=== PATIENT | male | born 1950 | race Caucasian/White ===

== ENCOUNTER 2021-08-27 11:49 | Outpatient (CLI) | payer OTHER, SELFPAY ==
--- NOTE | ~2021-08-27 | XR_ITS ---
EXAMINATION: XR thoracic spine 3V, XR lumbar spine 2-3V DATE: 08/27/2021 12:46 INDICATION: Unspecified low back pain TECHNIQUE: 1. One AP and lateral views of the thoracic spine were obtained. 2. Supine AP, lateral and coned-down lateral lumbosacral views of the lumbar spine were obtained. COMPARISON: Chest radiograph dated 03/24/2016 FINDINGS: Thoracic spine: Alignment is normal. Vertebral body heights are normal. Multilevel mild disc height loss along with b ridging osteophytes throughout the thoracic spine, the latter consistent with diffuse idiopathic skel etal hyperostosis (DISH). Dislocated left reversed total shoulder arthroplasty. Dual-lead cardiac pac emaker with lead tips in the right atrium and right ventricle. Lumbar spine: 5 degrees lumbar dextrocurvature. Sagittal alignment is normal. Vertebral body heights are normal. Mo derate disc height loss at L2-L3 and L5-S1 and mild disc height loss at the remaining lumbar levels. Additional bridging osteophytes consistent with DISH throughout the lumbar spine. IMPRESSION: 1. Mild thoracic and moderate lumbar spondylosis and DISH with bridging osteophytes throughout the ma jority of the thoracic and lumbar spine. 2. Dislocated left reverse total shoulder arthroplasty. Reviewed, dictated and finalized at location A. [employer] IMPRESSION: 1. Mild thoracic and moderate lumbar spondylosis and DISH with bridging osteoph ytes throughout the majority of the thoracic and lumbar spine. 2. Dislocated left reverse total shoulder arthroplasty.
== END 2021-08-27 11:50 | disposition home or self-care (01) ==
LOC: ANHIMG 11:51
PROVIDERS: PCP Family Medicine; Visit Provider Nurse Practitioner Family
DX: M54.50 Low back pain, unspecified (principal); M54.6 Pain in thoracic spine; M47.816 Spondylosis without myelopathy or radiculopathy, lumbar region; M47.814 Spondylosis without myelopathy or radiculopathy, thoracic region; M48.16 Ankylosing hyperostosis [Forestier], lumbar region; T84.89XA Other specified complication of internal orthopedic prosthetic devices, implants and grafts, initial encounter; Z96.612 Presence of left artificial shoulder joint
CPT/HCPCS: 72072; 72100

== ENCOUNTER → 2021-10-14 08:22 | Outpatient (CLI) | payer OTHER, SELFPAY ==
--- NOTE | ~2021-10-14 | XR_ITS ---
XR foot RT min 3V DATE: 10/14/2021 08:57 INDICATION: Right foot pain TECHNIQUE: 4 views COMPARISON: None FINDINGS: There is diffuse osteopenia. There is very prominent plantar and moderately prominent posterior calcaneal enthesopathy. There is polyarticular osteoarthritis including prominent hypertrophic osteoarthritic change at the t alonavicular joint with prominent dorsal spurring, involvement of tarsal and tarsometatarsal joints, severe joint space narrowing and mild spurring at the first metatarsophalangeal joint. No fracture or dislocation, periosteal reaction or bone destruction is detected. There is extensive anterior and posterior tibial, dorsalis pedis and metatarsal artery calcification, suggesting diabetes. IMPRESSION: Polyarticular osteoarthritis Calcaneal enthesopathy Osteopenia Arterial calcification, including metatarsal artery calcification, suggesting diabetes Reviewed, dictated and finalized at location B. [employer]IC[employer] IMPRESSION: Polyarticular osteoarthritis Calcaneal enthesopathy Osteopenia Arterial calcification, including metatarsal artery calcification, suggesting d luis
== END ==
PROVIDERS: PCP Family Medicine; Visit Provider Physician Assistant
DX: M79.671 Pain in right foot (principal); M19.071 Primary osteoarthritis, right ankle and foot; M77.31 Calcaneal spur, right foot; M85.871 Other specified disorders of bone density and structure, right ankle and foot; I70.201 Unspecified atherosclerosis of native arteries of extremities, right leg
CPT/HCPCS: 73630

== ENCOUNTER 2022-10-23 15:10 | Observation (INO) | payer OTHER, SELFPAY ==
[2022-10-23] VITALS (21 sets, daily range): BP systolic 129–145; BP diastolic 47–85; PULSE 75–92; RESP 16–20; TEMP 36.8; O2SAT 95–100
--- NOTE | ~2022-10-23 | CT_ITS ---
EXAMINATION: CTA brain carotid DATE: 10/23/2022 20:02 INDICATION: Dizziness. TECHNIQUE: Computed tomographic angiography (CTA) of the head was performed without and with 100 mL O mnipaque-350 intravenous contrast. CTA of the neck was performed with intravenous contrast. Automated exposure control and iterative reconstruction technique were employed. The dose-length product was 1 940.64 mGy-cm. Maximum intensity projection and volume rendered 3D-reconstructions were created by mery barnes technologist on a separate workstation. COMPARISON: Head CT 03/24/2016 FINDINGS: HEAD CTA: There are scattered areas of low attenuation in the cerebral white matter, which is within normal limits for the patient's age. There is no intracranial hemorrhage, acute infarction, or abnorm al intracranial mass lesion. The ventricles are normal in size. The paranasal sinuses are clear. Ther e are likely changes of ocular lens replacement surgeries. The mastoid air cells are normal. The vert ebral arteries are codominant. There is moderate stenosis of the distal vertebral arteries. There is no significant stenosis of basilar artery or the posterior cerebral arteries. There is mild stenosis of the intracranial internal carotid arteries. There is no significant stenosis of the anterior or mi ddle cerebral arteries. Right A1 anterior cerebral artery is small, a normal variant. Anterior commun icating artery is normal. Left posterior communicating artery is normal. A right posterior communicat ing artery is not identified. There is no aneurysm. NECK CTA: Partially visualized is a left chest pacer. There are no pathologically enlarged lymph node s. There is no significant stenosis of the cervical vertebral arteries. There is plaque in the proxim al internal carotid arteries. There is 65% stenosis of the proximal right internal carotid artery rel ative to normal distal artery lumen diameter (NASCET criteria). There is 29% stenosis of the proximal left internal carotid artery relative to normal distal artery lumen diameter. There is severe cervic al spondylosis. IMPRESSION: 1. Normal aging brain. 2. Moderate stenosis of the distal vertebral arteries. 3. 65% stenosis of the proximal right internal carotid artery relative to normal distal artery lumen diameter (NASCET criteria). 4. 29% stenosis of the proximal left internal carotid artery relative to normal distal artery lumen d iameter. Reviewed, dictated and finalized at location A. WAINER IMPRESSION: 1. Normal aging brain. 2. Moderate stenosis of the distal vertebral arteries. 3. 65% stenosis of the proximal right internal carotid artery relative to scot l distal artery lumen diameter (NASCET criteria). 4. 29% stenosis of the proximal left internal carotid artery relative to normal distal artery lumen diameter.
--- NOTE | ~2022-10-23 | XR_ITS ---
EXAMINATION: XR chest 2V DATE: 10/23/2022 18:53 INDICATION: Dizziness. TECHNIQUE: Frontal and lateral views of the chest were obtained on 3 radiographs. COMPARISON: Chest single view 03/24/2016, chest CT 08/07/2010 FINDINGS: There is mild atelectasis in right lower lung zone. No pleural effusion or pneumothorax. Ca rdiomegaly is noted. There is a left chest wall pacer with leads in the right atrium and right ventri alysha. There is a dislocated left shoulder arthroplasty. IMPRESSION: 1. Mild atelectasis in right lower lung zone. 2. Cardiomegaly. 3. Dislocated left shoulder arthroplasty. Reviewed, dictated and finalized at location A. [employer]
--- NOTE | 2022-10-23 15:45 | ECG_ITS ---
Measurements Intervals [place] Rate: 79 P: ID: 0 QRS: 53 QRSD: 102 T: 194 QT: 413 QTc: 474 Interpretive Statements ATRIAL FIBRILLATION LOW QRS VOLTAGE IN PRECORDIAL LEADS [QRS DEFLECTION < 1.0 mV IN CHEST LEADS] POOR R-WAVE PROGRESSION MODERATE T-WAVE ABNORMALITY, CONSIDER INFERIOR ISCHEMIA [-0.1+ mV T WAVE IN II/aVF] ABNORMAL ECG NO PREVIOUS ECG AVAILABLE FOR COMPARISON Electronically Signed On 10-24-2022 15:06:32 GREENHOUSE INSTRUCTOR by Raj Robbins M.D.
[2022-10-23 17:02] LABS: Basophils Percent Auto 0.3 % (0.2-1.2); Eosinophils Absolute Auto 0.1 K/mm3 (0-0.3); Eosinophils Percent Auto 1.5 % (0-4.4); Hematocrit 36.2 % (42.0-52.0); Immature Granulocyte Absolute 0.01 K/mm3 (0.00-0.031); Immature Granulocyte Percent A 0.2 % (0-0.5); Lymphocytes Absolute Auto 1.64 K/mm3 (0.9-3.2); Lymphocytes Percent Auto 26.8 % (18.3-44.2); Mean Corpuscular HGB Conc 33.1 g/dl (32-36); Mean Corpuscular Hemoglobin 33.4 pg (26-34); Mean Corpuscular Volume 100.8 fl (80-100); Mean Platelet Volume 9.8 fl (7.4-10.4); Monocytes Absolute Auto 0.5 K/mm3 (0.1-0.6); Monocytes Percent Auto 8.8 % (2.6-8.5); Neutrophils Absolute Auto 3.8 K/mm3 (1.3-6.7); Neutrophils Percent Auto 62.4 % (45.5-73.1); Platelet Count Result 140 k/mm3 (150-375); Red Blood Count 3.59 M/mm3 (4.6-6.20); Red Cell Distribution Width 14.7 % (11.5-14.5); White Blood Count 6.1 K/mm3 (4.5-10.0)
[2022-10-23 17:09] LABS: Alanine Aminotransferase 20 U/L (6-50); Albumin Level 4.3 g/dL (3.5-5.1); Alkaline Phosphatase 87 U/L (38-126); Anion Gap 7 mmol/L (8-16); Aspartate Amino Transferase 28 U/L (17-59); Bilirubin,Total 1.2 mg/dL (0.2-1.3); Blood Urea Nitrogen 40 mg/dL (9-20); Calcium 8.8 mg/dL (8.4-10.2); Carbon Dioxide 27 mmol/L (22-30); Chloride 101 mmol/L (98-107); Estimated CRCL calculation 50 ml/min; Estimated Glomerular Filt Rate 37; Glucose 138 mg/dL (65-110); Potassium 3.9 mmol/L (3.4-5.0); Sodium 135 mmol/L (137-145)
--- NOTE | 2022-10-23 18:42 | ED.DIZZY ---
HPI - Dizziness General Chief Complaint: Dizziness <Lary Soares PA-C - Last Filed: 10/24/22 03:20> Stated Complaint: dizziness/off balance/flushing <Lary Soares PA-C - Last Filed: 10/24/22 03:20> Time Seen by Provider: 10/23/22 18:12 <Lary Soares PA-C - Last Filed: 10/24/22 03:20> History of Present Illness HPI Narrative: Patient is a 72-year-old male with history of CAD, diabetes, CHF, HLD, CKD, s/p cardiac pacemaker placement, a fib, here for evaluation of dizziness today. Patient states that he was walking down his driveway in his usual state of health when he suddenly felt flushed, shortness of breath and had dizziness. Reports blurry vision in both eyes. Since then he has had intermittent dizziness and shortness of breath. Denies any chest pain. He has chronic leg swelling and has been compliant with his Bumex. tells me patient had a pacemaker placed after he had a cardiac event several years ago. <Lary Soaers PA-C - Last Filed: 10/24/22 03:20> Related Data Home Medications: Home Medications Medication Instructions Recorded Confirmed aspirin 81 mg tablet,delayed 81 mg PO DAILY 04/15/21 10/24/22 release bumetanide 2 mg tablet 1 mg PO DAILY 04/15/21 10/24/22 clopidogrel 75 mg tablet 75 mg PO DAILY 04/15/21 10/24/22 fexofenadine 60 mg tablet (Jessica 60 mg PO Q12H 04/15/21 10/24/22 Allergy) lisinopril 10 mg tablet 15 mg PO DAILY 04/15/21 10/24/22 metoprolol tartrate 25 mg tablet 25 mg PO BID 04/15/21 10/24/22 solifenacin 10 mg tablet (Vesicare) 10 mg PO DAILY 04/15/21 10/24/22 allopurinol 300 mg tablet 300 mg PO DAILY 10/24/22 10/24/22 atorvastatin 40 mg tablet 40 mg PO HS 10/24/22 10/24/22 empagliflozin 10 mg tablet 10 mg PO DAILY 10/24/22 10/24/22 (Jardiance) tamsulosin 0.4 mg capsule 0.4 mg PO DAILY 10/24/22 10/24/22 <Lary Soares PA-C - Last Filed: 10/24/22 03:20> Allergies/Adverse Reactions: Allergies Allergy/AdvReac Type Severity Reaction Status Date / Time fentanyl Allergy Severe stop Verified 10/23/22 15:19 breathing adhesive tape Allergy Mild Rash Verified 10/23/22 15:19 <Lary Soares PA-C - Last Filed: 10/24/22 03:20> Review of Systems Review of Systems: Gen: Reports dizziness, diaphoresis Eyes: Denies eye pain or visual change ENT: Denies congestion Respiratory: Reports mild shortness of breath CV: Denies chest pain or palpitations GI: Denies abdominal pain nausea, emesis or diarrhea : denies burning, urgency, frequency or hematuria Musculoskeletal: Denies back pain or muscle pain Neuro: Denies numbness, tingling, weakness or focal weakness Skin: Denies rash Except as documented, all other systems reviewed and negative <Lary Soares PA-C - Last Filed: 10/24/22 03:20> [facility] Past Medical History Medical History: Medical History CAD (coronary artery disease) CHF (congestive heart failure) Chronic kidney disease, stage 3 unspecified Diabetes HLD (hyperlipidemia) 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 Hypothyroidism [place] (myocardial infarction) OMAR (obstructive sleep apnea) <Lary Soares PA-C - Last Filed: 10/24/22 03:20> Surgical History Surgical History: Surgical History H/O elbow surgery History of bilateral cataract extraction History of carpal tunnel release History of coronary artery stent placement History of knee replacement bilateral History of shoulder replacement Status cardiac pacemaker <Lary Soares PA-C - Last Filed: 10/24/22 03:20> Family History Family History: Family History Father Heart disease Mother Throat cancer <Lary Soares PA-C - Last Filed: 10/24/22 03:20> Social History Socia
[2022-10-23 19:24] LABS: Troponin I < 0.012 ng/mL (0.000-0.034)
[2022-10-23] MEDS: MECLIZINE HCL 12.5 MG TABLET PO (19:24)
[2022-10-23 21:34] LABS: INR 1.2; Prothrombin Time 14.6 Seconds (11.1-14.7)
[2022-10-23 21:35] LABS: Partial Thromboplastin Time 32.6 SECONDS (22.3-36.8)
[2022-10-23 21:57] LABS: Influenza A QL RT-PCR Negative (Negative); Influenza B QL RT-PCR Negative (Negative); SARS-CoV-2 RNA PCR Negative
[2022-10-24] VITALS (10 sets, daily range): BP systolic 107–138; BP diastolic 54–106; PULSE 72–98; RESP 18–24; TEMP 36.7–37; O2SAT 99–100; BMI 45.0
--- NOTE | 2022-10-24 | ECHO_ITS ---
Patient Info Name: Issa Lopez Age: 72 years : 1950 Gender: Male Ht: 72 in Wt: 331 lbs BSA: 2.83 m2 HR: 98 bpm BP: 138 / 89 mmHg Heart Rhythm: Atrial Fibrillation Technical Quality: Fair Exam Date: 10/24/2022 8:49 AM Exam Location: [facility] Patient Status: Outpatient Admit Date: 10/23/2022 Staff Ordering Physician: Skinny Ochoa MD Property Insurance Claims Examiner: Mayi Schumacher RDCS Attending Provider: Tess Noguera PA-C Referring Physician: Don CURRIE; Exam Type: CA echo dop color flow w con Study Info Indications - dizziness Complete two-dimensional, color flow and Doppler transthoracic echocardiogram is performed with contrast to opacify the left ventricle and to improve the deliniation of the left ventricle endocardial borders. Contrast/Agitated Saline Contrast/Ag. Saline: Definity Amount: 3.00 ml Administered By: Mayi Schumacher RDCS Existing IV Access: Yes IV Access Condition: patent with no signs of infiltration Summary 1. Left ventricular chamber dimension is normal. 2. Left ventricular systolic function is normal, estimated at 65-70%. 3. There is moderately increased left ventricular wall thickness. 4. The left ventricular diastolic function is abnormal. 5. Left atrial chamber dimension is mildly enlarged. 6. There is moderate to severe aortic valve stenosis with a peak velocity of 213.42 cm/s, mean gradient of 11 mmHg, and aortic valve area of 1.01 cm2. 7. Moderate pulmonary hypertension, estimated pulmonary arterial systolic pressure is 47 mmHg. 8. There is mild tricuspid valve regurgitation. 9. The aortic valve is abnormal with significant stenosis noted. Cardiology evaluation is recommended. Also probable linear artifact is seen in the right side, possible Pacemaker. Left Ventricle Left ventricular chamber dimension is normal. Left ventricular systolic function is normal, estimated at 65-70%. There is moderately increased left ventricular wall thickness. The left ventricular diastolic function is abnormal. Right Ventricle Right ventricular chamber dimension is normal. Right ventricular systolic function is normal. Linear artifact in right ventricle suggestive of catheter(s), pacemaker lead(s), or ICD lead(s). Left Atria Left atrial chamber dimension is mildly enlarged. Right Atria Right atrial chamber dimension is normal. Atrial Septum Intact interatrial septum visualized by color flow imaging. Aortic Valve The aortic valve is probable trileaflet. There is moderate to severe aortic valve stenosis with a peak velocity of 213.42 cm/s, mean gradient of 11 mmHg, and aortic valve area of 1.01 cm2. There is mild aortic valve regurgitation. There is severe aortic valve calcification. Pulmonic Valve The pulmonic valve is normal. There is no pulmonic valve stenosis. There is trace pulmonic regurgitation. Mitral Valve The mitral valve has normal leaflets. There is no mitral valve stenosis. There is trace mitral valve regurgitation. Tricuspid Valve The tricuspid valve leaflets are normal. There is no significant tricuspid valve stenosis. There is mild tricuspid valve regurgitation. Moderate pulmonary hypertension, estimated pulmonary arterial systolic pressure is 47 mmHg. Other Findings The aortic valve is abnormal with significant stenosis noted. Cardiology evaluation is recommended. Also probable linear artifact is seen in the right side, possible Pace
[2022-10-24 00:40] LABS: NT Pro B Type Natriuretic Pept 1700 pg/mL (19.9-100)
--- NOTE | 2022-10-24 00:57 | PM.IMHP ---
H&P: HPI History of Present Illness Date/Time: 10/24/22 00:57 Chief Complaint: Dizzy Narrative: This is a 72 yo male with PMHx significant for CAD, CHF, CKD, Morbid obesity, OMAR.Patient presented to ED due to unsteady gait, dizziness, no focal weakness, no speech disturbance, patient has been in his usual state of health up until this point this occurred at around noon time he was his usual prior to this. Preliminary work up was significant for CT reorted as : FINDINGS: HEAD CTA: There are scattered areas of low attenuation in the cerebral white matter, which is within normal limits for the patient's age. There is no intracranial hemorrhage, acute infarction, or abnormal intracranial mass lesion. The ventricles are normal in size. The paranasal sinuses are clear. There are likely changes of ocular lens replacement surgeries. The mastoid air cells are normal. The vertebral arteries are codominant. There is moderate stenosis of the distal vertebral arteries. There is no significant stenosis of basilar artery or the posterior cerebral arteries. There is mild stenosis of the intracranial internal carotid arteries. There is no significant stenosis of the anterior or middle cerebral arteries. Right A1 anterior cerebral artery is small, a normal variant. Anterior communicating artery is normal. Left posterior communicating artery is normal. A right posterior communicating artery is not identified. There is no aneurysm. NECK CTA: Partially visualized is a left chest pacer. There are no pathologically enlarged lymph nodes. There is no significant stenosis of the cervical vertebral arteries. There is plaque in the proximal internal carotid arteries. There is 65% stenosis of the proximal right internal carotid artery relative to normal distal artery lumen diameter (NASCET criteria). There is 29% stenosis of the proximal left internal carotid artery relative to normal distal artery lumen diameter. There is severe cervical spondylosis. IMPRESSION: 1. Normal aging brain. 2. Moderate stenosis of the distal vertebral arteries. 3. 65% stenosis of the proximal right internal carotid artery relative to normal distal artery lumen diameter (NASCET criteria). 4. 29% stenosis of the proximal left internal carotid artery relative to normal distal artery lumen diameter. Review of Systems Review of Systems: feeling dizzy, gait unsteady Constitutional: Constitutional: Denies chills, Denies fatigue, Denies fever(s), Denies frequent falls, Denies malaise, Denies night sweats and Denies poor appetite Eyes: Eyes: Denies change in vision ENT: Denies dysphagia, Reports dizziness and Denies odynophagia Cardiovascular: Cardiovascular: Denies chest pain, Reports leg edema, Reports lightheadedness, Denies radiating jaw, neck or arm pain, Denies palpitations and Denies orthopnea Respiratory: Respiratory: Denies chest congestion, Denies cough and Denies excessive phlegm production Gastrointestinal: Gastrointestinal: Denies abdominal pain, Denies dyspepsia, Denies heartburn, Denies diarrhea, Denies nausea and Denies vomiting Genitourinary: Genitourinary: Denies dysuria Musculoskeletal: Musculoskeletal: Denies arthralgias and Denies muscle weakness Integumentary/Breasts: Skin/Breast: Denies rash Neurologic: Reports dizziness, Denies focal weakness and Denies Sensory deficit (Neuro) Psychiatric: Psychiatric: Reports no additional psychiatric complaints and Reports as per HPI Endocrine: Endocrine: Denies cold intolerance, Denies flushing, Denies heat intolerance, Denies polyphagia, Denies polydipsia and Denies palpitations Hematologic/Lymphatic: Hematologic/Lymphatic: Reports no additional hematologic/lymphatic complaints and Reports as per HPI Allergic/Immunologic: Allergic/Immunologic: Reports no additional allergic/immunologic complaints and Reports as per HPI PMFSH Past Medical History Medical History CAD (coron
--- NOTE | 2022-10-24 01:27 | ADMGEN ---
This patient, Issa Lopez II, was admitted to Medical Room 340-01. Patient/family oriented to hospital policies and general routines including ID bracelet, bed and alarms, visiting hours, pain management, procedures, bathroom and other care routines, personal items, smoking policy, room service/diet, and visiting hours. Information on how to activate the Rapid Response Team has been discussed. Patient/Family are encouraged to report perceived risks to care and to ask questions if they do not understand what they are told or what they should do.
[2022-10-24] MEDS: THYROID 30 MG TABLET PO (07:52)
[2022-10-24 08:50] LABS: Glucose Point of Care 131 mg/dl (65-105)
[2022-10-24 08:53] LABS: Hematocrit 37.2 % (42.0-52.0); Hemoglobin 12.2 g/dL (14.0-18.0); Mean Corpuscular HGB Conc 32.8 g/dl (32-36); Mean Corpuscular Hemoglobin 33.1 pg (26-34); Mean Corpuscular Volume 100.8 fl (80-100); Mean Platelet Volume 9.9 fl (7.4-10.4); Platelet Count Result 134 k/mm3 (150-375); Red Blood Count 3.69 M/mm3 (4.6-6.20); Red Cell Distribution Width 14.7 % (11.5-14.5); White Blood Count 6.1 K/mm3 (4.5-10.0)
[2022-10-24 09:12] LABS: Anion Gap 10 mmol/L (8-16); Blood Urea Nitrogen 31 mg/dL (9-20); Calcium 8.9 mg/dL (8.4-10.2); Carbon Dioxide 25 mmol/L (22-30); Chloride 106 mmol/L (98-107); Estimated CRCL calculation 61 ml/min; Estimated Glomerular Filt Rate 46; Glucose 143 mg/dL (65-110); Sodium 141 mmol/L (137-145)
[2022-10-24] MEDS: PERFLUTREN LIPID MICROSPHERES 1.5 ML VIAL DILUTED TO 10 ML TOTAL VOLUME IV PUSH (09:37)
--- NOTE | 2022-10-24 09:37 | IVDEFINITY ---
Prior to administration of IV Definity the patient was educated on the risks and benefits of the imaging enhancing agent including potential adverse side effects. The patient verbalized understanding. Allergies were verified. No exclusion criteria were identified and at least one of the following inclusion criteria were met: 1) physician request, 2) patient technically difficult to image (per the [place] Society of Echocardiography guidelines of two or more segments not discernable within the apical view), or 3) questionable left ventricular function. ?
[2022-10-24] MEDS: TAMSULOSIN HCL 0.4 MG CAPSULE PO (10:04)
[2022-10-24] MEDS: METOPROLOL TARTRATE 25 MG TABLET PO ×2 (10:04→20:50)
[2022-10-24] MEDS: ASPIRIN 81 MG ENTERIC TABLET PO (10:05)
[2022-10-24] MEDS: LORATADINE 10 MG TABLET PO (10:05)
[2022-10-24] MEDS: allopurinoL 300 MG TABLET PO (10:05)
[2022-10-24] MEDS: lisinopriL 5 MG TABLET 15 MG PO (10:05)
[2022-10-24] MEDS: EMPAGLIFLOZIN 10 MG TABLET PO (10:06)
[2022-10-24] MEDS: BUMETANIDE 1 MG TABLET PO (10:06)
[2022-10-24] MEDS: CLOPIDOGREL BISULFATE 75 MG TABLET PO (10:06)
[2022-10-24] MEDS: SOLIFENACIN 5 MG TABLET 10 MG PO (10:07)
--- NOTE | 2022-10-24 11:27 | P.PNIM_ITS ---
Progress Note: A&P Assessment and Plan (1) Dizziness: Code(s): R42 - Dizziness and giddiness Status: Acute Assessment and Plan: patient presented after 2 episodes of dizziness. * CT of the head/ neck reviewed which showed normal aging brain * symptoms have resolved * echocardiogram is pending * patient with what appears to be new onset atrial fibrillation which could contribute to dizziness. See plan below * patient reportedly has history of moderate aortic stenosis which could also contribute to symptoms. Will await echo results as above * monitor orthostatics (2) Atrial fibrillation: Code(s): I48.91 - Unspecified atrial fibrillation Status: Acute Assessment and Plan: EKG on presentation demonstrated atrial fibrillation with heart rate controlled * patient does have pacemaker in place * he has no history of atrial fibrillation and is not on anticoagulation * he is on metoprolol tartrate 25 mg b.i.d. * appreciate cardiology consultation given new onset atrial fibrillation in symptomatic patient * monitor on telemetry (3) Carotid stenosis: Code(s): I65.29 - Occlusion and stenosis of unspecified carotid artery Status: Acute Assessment and Plan: CTA of the head/ neck on presentation showed 65% stenosis of the proximal right internal carotid artery with 20% stenosis of proximal left internal carotid artery * right internal carotid artery stenosis not clinically significant for intervention at this time * will provide vascular surgery referral discharge (4) Aortic stenosis, moderate: Code(s): I35.0 - Nonrheumatic aortic (valve) stenosis Status: Acute Assessment and Plan: as noted above * echocardiogram is pending (5) OMAR (obstructive sleep apnea): Code(s): G47.33 - Obstructive sleep apnea (adult) (pediatric) Status: Acute Assessment and Plan: patient reports compliance with home CPAP * continue CPAP during admission (6) Diabetes: Code(s): E11.9 - Type 2 diabetes mellitus without complications Status: Acute Assessment and Plan: A1c is 7.2 * begin Accu-Cheks, sliding scale insulin, hypoglycemic protocol * hold home metformin (7) CHF (congestive heart failure): Code(s): I50.9 - Heart failure, unspecified Status: Acute Assessment and Plan: patient with history of CHF. CXR on admission reveals cardiomegaly and BNP is slightly elevated for his age at 1700 * no evidence of volume overload on exam aside from chronic appearing lower extremity edema * continue home Bumex * heart healthy diet (8) Hypertension: Code(s): I10 - Essential (primary) hypertension Status: Acute Assessment and Plan: blood pressure is stable. * Continue lisinopril and metoprolol (9) Hypothyroidism: Code(s): E03.9 - Hypothyroidism, unspecified Status: Acute Assessment and Plan: TSH on 10/09/2022 was within normal limits * continue home armor Thyroid 30 mg daily Subjective Date/time seen: 10/24/22 11:27 Interval history: Date of service: 10/24/2022 Issa Lopez II is a 72-year-old male with a history of CAD, CHF, CKD, hypertension, hyperlipidemia, hypothyroidism, and OMAR who is seen in follow-up for dizziness. Patient reports that you had previously been feeling off balance and having difficulty due brown, however this has resolved. He has not been out of bed ye
--- NOTE | 2022-10-24 11:27 | PM.IMPN ---
Progress Note: A&P Assessment and Plan (1) Dizziness: Code(s): R42 - Dizziness and giddiness Status: Acute Assessment and Plan: patient presented after [address] of the head/ neck reviewed which showed normal aging brain symptoms have resolved echocardiogram is pending patient with what appears to be new onset atrial fibrillation which could contribute to dizziness. See plan below patient reportedly has history of moderate aortic stenosis which could also contribute to symptoms. Will await echo results as above monitor orthostatics (2) Atrial fibrillation: Code(s): I48.91 - Unspecified atrial fibrillation Status: Acute Assessment and Plan: EKG on presentation demonstrated atrial fibrillation with heart rate controlled patient does have pacemaker in place he has no history of atrial fibrillation and is not on anticoagulation he is on metoprolol tartrate 25 mg b.i.d. appreciate cardiology consultation given new onset atrial fibrillation in symptomatic patient monitor on telemetry (3) Carotid stenosis: Code(s): I65.29 - Occlusion and stenosis of unspecified carotid artery Status: Acute Assessment and Plan: CTA of the head/ neck on presentation showed 65% stenosis of the proximal right internal carotid artery with 20% stenosis of proximal left internal carotid artery right internal carotid artery stenosis not clinically significant for intervention at this time will provide vascular surgery referral discharge (4) Aortic stenosis, moderate: Code(s): I35.0 - Nonrheumatic aortic (valve) stenosis Status: Acute Assessment and Plan: as noted above echocardiogram is pending (5) OMAR (obstructive sleep apnea): Code(s): G47.33 - Obstructive sleep apnea (adult) (pediatric) Status: Acute Assessment and Plan: patient reports compliance with home CPAP continue CPAP during admission (6) Diabetes: Code(s): E11.9 - Type 2 diabetes mellitus without complications Status: Acute Assessment and Plan: A1c is 7.2 begin Accu-Cheks, sliding scale insulin, hypoglycemic protocol hold home metformin (7) CHF (congestive heart failure): Code(s): I50.9 - Heart failure, unspecified Status: Acute Assessment and Plan: patient with history of CHF. CXR on admission reveals cardiomegaly and BNP is slightly elevated for his age at 1700 no evidence of volume overload on exam aside from chronic appearing lower extremity edema continue home Bumex heart healthy diet (8) Hypertension: Code(s): I10 - Essential (primary) hypertension Status: Acute Assessment and Plan: blood pressure is stable. Continue lisinopril and metoprolol (9) Hypothyroidism: Code(s): E03.9 - Hypothyroidism, unspecified Status: Acute Assessment and Plan: TSH on 10/09/2022 was within normal limits continue home armor Thyroid 30 mg daily Subjective Date/time seen: 10/24/22 11:27 Interval history: Date of service: 10/24/2022 Issa Lopez II is a 72-year-old male with a history of CAD, CHF, CKD, hypertension, hyperlipidemia, hypothyroidism, and OMAR who is seen in follow-up for dizziness. Patient reports that you had previously been feeling off balance and having difficulty due brown, however this has resolved. He has not been out of bed yet today but was able to sit up from bed and is sitting on the side of the bed without assistance. He has no symptoms at this time. He denies any palpitations. Denies nausea or vomiting. Denies shortness of breath, cough, chest pain. No abdominal pain. No urinary symptoms. He states that with his 1st episode of dizziness, he had a brief visual disturbance lasting about 30 seconds but at this time he has no visual changes and this has resolved entirely. Denies any speech gonzalez
[2022-10-24 12:27] LABS: Glucose Point of Care 216 mg/dl (65-105)
[2022-10-24] MEDS: INSULIN ASPART (*BKC) 100 UNITS/ML SUB-Q (12:29)
[2022-10-24 17:28] LABS: Glucose Point of Care 106 mg/dl (65-105)
--- NOTE | 2022-10-24 17:55 | PM.CNCAR ---
Assessment and Plan Assessment and plan (1) Atrial fibrillation: Code(s): I48.91 - Unspecified atrial fibrillation Status: Acute (2) Morbid obesity with BMI of 45.0-49.9, adult: Code(s): E66.01 - Morbid (severe) obesity due to excess calories; Z68.42 - Body mass index [BMI] 45.0-49.9, adult Status: Acute (3) Aortic stenosis, moderate: Code(s): I35.0 - Nonrheumatic aortic (valve) stenosis Status: Acute Plan This is a 72-year-old man with: Paroxysmal atrial fibrillation which is essentially asymptomatic he was unaware of this arrhythmia upon coming to the hospital he was not particularly tachycardic so I do not really believe it had anything to do with his symptomatology. He has a history of coronary disease with stenting about 7 years ago and a history of moderate/not severe aortic valve stenosis. At this point the principal cardiac recommendation is to initiate systemic anticoagulation and to reduce anti-platelet therapy to avoid undue hemorrhagic risk. I am going to discontinue clopidogrel he is cardiac stent procedure was about 7 years ago. I will start apixaban 2.5 mg twice daily. Following discharge from [facility] he was encouraged to follow-up with his established academic hospitalist. Raj Robbins MD [facility] History of Present Illness History of Present Illness Consult date/time: 10/24/22 17:55 Reason For Visit: Dizziness Narrative: This is a 72-year-old man I am seeing this evening at the request of the hospitalist because of atrial fibrillation and valvular heart disease. He is a known to my service prior to this encounter this evening he apparently is quit known to the Cardiology group in [place]. He received care there because of a history of coronary disease arrhythmias requiring a pacemaker device as well as valvular heart disease with aortic valve stenosis. According to the records the patient was brought here yesterday by his when he was getting to a dental appointment was having a lot of difficulty with lightheadedness and unsteadiness of his gait. The symptoms were waxing and waning. The decided to cancel the dental appointment and after a while he stated were driven over here for evaluation in the emergency room. Patient was described as being in no significant distress but was admitted for further observation. His electrocardiogram yesterday upon arrival showed rate controlled atrial fibrillation and he had an echocardiogram done which appears to show evidence of moderate aortic valve stenosis. The patient and his indicate that the aortic valve disease is unknown and T and is being followed by there established academic hospitalist. They also indicate that he has a history of coronary disease and underwent stenting of a 1 of his coronary arteries back in 2016. He is not having any active symptoms of chest pain pressure or heaviness orthopnea PND or edema. Upon arrival to see the patient he is on telemetry in room 340 and he is now in sinus rhythm with first-degree AV block. He is not experiencing any palpitations and I do not believe he had any specific awareness of being in atrial fibrillation upon arrival yesterday. His medical regimen consists of low-dose aspirin along with clopidogrel 75 mg daily atorvastatin, Bumex, lisinopril and metoprolol. He is also on thyroid supplement. The chart also indicates a history of hypertension and obesity/sleep apnea. His BMI is 45. Review of Systems Constitutional: Constitutional: Reports no additional constitutional complaints Eyes: Eyes: Reports no additional eye complaints ENT: Reports system reviewed and no additional complaints, except as documented Cardiovascular: Cardiovascular: Reports no additional cardiovascular complaints Respiratory: Respiratory: Reports no additional respiratory complaints Gastrointestinal: Gastrointestinal: Reports no additional gastrointestinal complaints Musculoskeletal: Musculoskeletal: Repo
[2022-10-24 20:00] LABS: Glucose Point of Care 205 mg/dl (65-105)
[2022-10-24] MEDS: APIXABAN 2.5 MG TABLET PO (20:49)
[2022-10-24] MEDS: ATORVASTATIN 40 MG TABLET PO (20:50)
[2022-10-25] VITALS (9 sets, daily range): BP systolic 101–114; BP diastolic 52–70; PULSE 63–104; RESP 16–20; TEMP 36.3–36.6; O2SAT 91–99
[2022-10-25 06:59] LABS: Hematocrit 32.7 % (42.0-52.0); Hemoglobin 10.6 g/dL (14.0-18.0); Mean Corpuscular HGB Conc 32.4 g/dl (32-36); Mean Corpuscular Hemoglobin 33.1 pg (26-34); Mean Corpuscular Volume 102.2 fl (80-100); Mean Platelet Volume 10.2 fl (7.4-10.4); Platelet Count Result 120 k/mm3 (150-375); White Blood Count 5.2 K/mm3 (4.5-10.0)
[2022-10-25 07:01] LABS: Anion Gap 5 mmol/L (8-16); Blood Urea Nitrogen 31 mg/dL (9-20); Calcium 8.3 mg/dL (8.4-10.2); Carbon Dioxide 28 mmol/L (22-30); Chloride 106 mmol/L (98-107); Estimated CRCL calculation 54 ml/min; Estimated Glomerular Filt Rate 40; Glucose 147 mg/dL (65-110); Potassium 3.7 mmol/L (3.4-5.0); Sodium 139 mmol/L (137-145)
[2022-10-25] MEDS: THYROID 30 MG TABLET PO (08:19)
[2022-10-25] MEDS: ASPIRIN 81 MG ENTERIC TABLET PO (08:19)
[2022-10-25] MEDS: APIXABAN 2.5 MG TABLET PO (08:19)
[2022-10-25] MEDS: allopurinoL 300 MG TABLET PO (08:19)
[2022-10-25] MEDS: EMPAGLIFLOZIN 10 MG TABLET PO (08:19)
[2022-10-25] MEDS: LORATADINE 10 MG TABLET PO (08:19)
[2022-10-25] MEDS: lisinopriL 5 MG TABLET 15 MG PO (08:20)
[2022-10-25] MEDS: SOLIFENACIN 5 MG TABLET 10 MG PO (08:20)
[2022-10-25] MEDS: BUMETANIDE 1 MG TABLET PO (08:20)
[2022-10-25] MEDS: METOPROLOL TARTRATE 25 MG TABLET PO (08:21)
[2022-10-25] MEDS: TAMSULOSIN HCL 0.4 MG CAPSULE PO (08:21)
[2022-10-25 08:54] LABS: Glucose Point of Care 173 mg/dl (65-105)
[2022-10-25 12:14] LABS: Glucose Point of Care 205 mg/dl (65-105)
[2022-10-25] MEDS: INSULIN ASPART (*BKC) 100 UNITS/ML SUB-Q (12:33)
[2022-10-25 13:16] LABS: Hematocrit 35.9 % (42.0-52.0); Hemoglobin 11.7 g/dL (14.0-18.0)
--- NOTE | 2022-10-25 15:17 | P.DS_ITS ---
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 * CT of the head/ neck reviewed which showed normal aging brain * symptoms have resolved * echocardiogram showed diastolic dysfunction, normal LV systolic function EF 65-70%, moderate to severe with a peak velocity of 213.42 cm/s, mean gradient of 11 mmHg, and aortic valve area of 1.01 cm2, and moderate pulmonary hypertension * new onset atrial fibrillation rate controlled noted on telemetry. * orthostatics negative. (2) Atrial fibrillation: Qualifiers: Atrial fibrillation type: paroxysmal Qualified Code(s): I48.0 - Paroxysmal atrial fibrillation Code(s): I48.91 - Unspecified atrial fibrillation Status: Acute Assessment and Plan: EKG on presentation demonstrated atrial fibrillation with heart rate controlled * patient does have pacemaker in place * no history of atrial fibrillation and is not on anticoagulation * on metoprolol tartrate 25 mg b.i.d. * appreciate cardiology consultation given new onset atrial fibrillation in symptomatic patient * monitored on telemetry. * Eliquis 2.5 mg PO BID initiated. Plavix stopped. Aspirin continued. * TSH within normal limits. (3) Carotid stenosis: Qualifiers: Laterality: bilateral Qualified Code(s): I65.23 - Occlusion and s tenosis of bilateral carotid arteries Code(s): I65.29 - Occlusion and stenosis of unspecified carotid artery Status: Acute Assessment and Plan: CTA of the head/ neck on presentation showed 65% stenosis of the proximal right internal carotid artery with 20% stenosis of proximal left internal carotid artery * right internal carotid artery stenosis 65% further follow up and monitoring closely by primary care with outpatient referral to vascular surgery * left internal carotid artery stenosis 29% (4) Aortic stenosis, moderate: Code(s): I35.0 - Nonrheumatic aortic (valve) stenosis Status: Acute Assessment and Plan: as noted above * echocardiogram moderate to severe as noted on echo. * Follow up with his own arborist with echocardiogram images placed on disc. * Counseled to avoid hyper and hypotension, as well as change positions slowly. (5) OMAR (obstructive sleep apnea): Code(s): G47.33 - Obstructive sleep apnea (adult) (pediatric) Status: Acute Assessment and Plan: patient reports compliance with home CPAP * continue CPAP during admission (6) Diabetes: Code(s): E11.9 - Type 2 diabetes mellitus without complications Status: Acute Assessment and Plan: A1c is 7.2 * begin Accu-Cheks, sliding scale insulin, hypoglycemic protocol * held home metformin inpatient and resumed on discharge (7) CHF (congestive heart failure): Qualifiers: Heart failure type: diastolic Heart failure chronicity: chronic Qualified Code(s): I50.32 - Chronic diastolic (congestive) heart failure Code(s): I50.9 - Heart failure, unspecified Status: Chronic Assessment and Plan
--- NOTE | 2022-10-25 15:17 | PM.DS ---
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 of the head/ neck reviewed which showed normal aging brain symptoms have resolved echocardiogram showed diastolic dysfunction, normal LV systolic function EF 65-70%, moderate to severe with a peak velocity of 213.42 cm/s, mean gradient of 11 mmHg, and aortic valve area of 1.01 cm2, and moderate pulmonary hypertension new onset atrial fibrillation rate controlled noted on telemetry. orthostatics negative. (2) Atrial fibrillation: Qualifiers: Atrial fibrillation type: paroxysmal Qualified Code(s): I48.0 - Paroxysmal atrial fibrillation Code(s): I48.91 - Unspecified atrial fibrillation Status: Acute Assessment and Plan: EKG on presentation demonstrated atrial fibrillation with heart rate controlled patient does have pacemaker in place no history of atrial fibrillation and is not on anticoagulation on metoprolol tartrate 25 mg b.i.d. appreciate cardiology consultation given new onset atrial fibrillation in symptomatic patient monitored on telemetry. Eliquis 2.5 mg PO BID initiated. Plavix stopped. Aspirin continued. TSH within normal limits. (3) Carotid stenosis: Qualifiers: Laterality: bilateral Qualified Code(s): I65.23 - Occlusion and stenosis of bilateral carotid arteries Code(s): I65.29 - Occlusion and stenosis of unspecified carotid artery Status: Acute Assessment and Plan: CTA of the head/ neck on presentation showed 65% stenosis of the proximal right internal carotid artery with 20% stenosis of proximal left internal carotid artery right internal carotid artery stenosis 65% further follow up and monitoring closely by primary care with outpatient referral to vascular surgery left internal carotid artery stenosis 29% (4) Aortic stenosis, moderate: Code(s): I35.0 - Nonrheumatic aortic (valve) stenosis Status: Acute Assessment and Plan: as noted above echocardiogram moderate to severe as noted on echo. Follow up with his own fuller brush worker with echocardiogram images placed on disc. Counseled to avoid hyper and hypotension, as well as change positions slowly. (5) OMAR (obstructive sleep apnea): Code(s): G47.33 - Obstructive sleep apnea (adult) (pediatric) Status: Acute Assessment and Plan: patient reports compliance with home CPAP continue CPAP during admission (6) Diabetes: Code(s): E11.9 - Type 2 diabetes mellitus without complications Status: Acute Assessment and Plan: A1c is 7.2 begin Accu-Cheks, sliding scale insulin, hypoglycemic protocol held home metformin inpatient and resumed on discharge (7) CHF (congestive heart failure): Qualifiers: Heart failure type: diastolic Heart failure chronicity: chronic Qualified Code(s): I50.32 - Chronic diastolic (congestive) heart failure Code(s): I50.9 - Heart failure, unspecified Status: Chronic Assessment and Plan: Chronic, diastolic CHF, not in acute exacerbation. patient with history of CHF. CXR on admission reveals cardiomegaly and BNP is slightly elevated for his age at 1700 no evidence of volume overload on exam aside from chronic appearing lower extremity edema continued home Bumex heart healthy diet (8) Hypertension: Qualifiers: Hypertension type: primary hypertension Qualified Code(s): I10 - Essential (
== END 2022-10-25 16:45 | disposition home or self-care (01) ==
LOC: ANHED 19:36 → ANH3MED 10-24 01:11 → ANH3MEDSUR 10-27 14:48
PROVIDERS: Emergency Medicine; Nurse Practitioner Family; Admitting Provider Internal Medicine; Emergency Provider Physician Assistant; PCP Family Medicine; Visit Provider Physician Assistant
DX: R42 Dizziness and giddiness (principal); I48.91 Unspecified atrial fibrillation; I65.09 Occlusion and stenosis of unspecified vertebral artery; I65.22 Occlusion and stenosis of left carotid artery; I35.0 Nonrheumatic aortic (valve) stenosis; G47.33 Obstructive sleep apnea (adult) (pediatric); I50.9 Heart failure, unspecified; Z20.822 Contact with and (suspected) exposure to COVID-19; I13.0 Hypertensive heart and chronic kidney disease with heart failure and stage 1 through stage 4 chronic kidney disease, or unspecified chronic kidney disease; E03.9 Hypothyroidism, unspecified; R23.2 Flushing; R06.02 Shortness of breath; H53.8 Other visual disturbances; I25.2 Old myocardial infarction; I25.10 Atherosclerotic heart disease of native coronary artery without angina pectoris; Z95.5 Presence of coronary angioplasty implant and graft; E11.22 Type 2 diabetes mellitus with diabetic chronic kidney disease; N18.9 Chronic kidney disease, unspecified; R91.8 Other nonspecific abnormal finding of lung field; R94.31 Abnormal electrocardiogram [ECG] [EKG]; G89.29 Other chronic pain; M79.89 Other specified soft tissue disorders; I27.20 Pulmonary hypertension, unspecified; E78.5 Hyperlipidemia, unspecified; Z87.891 Personal history of nicotine dependence; Z95.0 Presence of cardiac pacemaker; Z79.82 Long term (current) use of aspirin; Z79.02 Long term (current) use of antithrombotics/antiplatelets; Z79.899 Other long term (current) drug therapy
CPT/HCPCS: 36415; 70496; 70498; 71046; 80048; 80053; 82607; 82746; 82948; 83880; 84484; 85014; 85018; 85025; 85027; 85610; 85730; 87636; 93005; 96374; 97161; 97165; 97530; 99285; A9270; C8929; G0378; J1815; Q9957; Q9967

== ENCOUNTER 2022-12-07 15:02 | Emergency (ER) | payer OTHER, SELFPAY ==
--- NOTE | ~2022-12-07 | XR_ITS ---
EXAMINATION: XR chest 1V portable Exam Date/Time: 12/07/2022 16:17 CDT HISTORY: Dizziness Comparison: 10/23/2022. RESULT: Lines, tubes, and devices: Left shoulder arthroplasty, which again appears to be dislocated. Left ch est pacer with intact leads. Lungs and pleura: Bibasilar scar/atelectasis, senescent change, otherwise clear. Cardiomediastinal silhouette: Stable. Other: No acute osseous or upper abdominal finding. IMPRESSION: No acute cardiopulmonary process. Chronically dislocated left shoulder arthroplasty. Reviewed, dictated and finalized at location K. IMPRESSION: No acute cardiopulmonary process. Chronically dislocated left shoulder arthropl astyaa.
--- NOTE | ~2022-12-07 | CT_ITS ---
EXAMINATION: CT brain wo con DATE: 12/07/2022 17:09 INDICATION: Dizziness . TECHNIQUE: Computed tomography (CT) of the head was performed without intravenous contrast. The mA wa s adjusted according to patient size. Iterative reconstruction technique was employed. The dose-lengt h product was 681.00 mGy-cm. COMPARISON: 10/23/2022. FINDINGS: No acute intracranial hemorrhage or extra-axial fluid collection. No hydrocephalus, mass, or herniation. No acute ischemic infarct. Unremarkable dural venous sinus attenuation. No acute osseous abnormality. The aerated spaces are clear. Mild atrophy and chronic white matter change. Bilateral basal ganglia calcification Atherosclerotic i ntracranial calcification. Bilateral lens replacements. IMPRESSION: No acute intracranial process. Reviewed, dictated and finalized at location K.
[2022-12-07 15:06] VITALS: BP 141/76; PULSE 91; RESP 20; TEMP 36.9; O2SAT 98
--- NOTE | 2022-12-07 15:15 | ECG_ITS ---
Measurements Intervals [place] Rate: 83 P: 149 TX: 136 QRS: 64 QRSD: 106 T: 120 QT: 397 QTc: 468 Interpretive Statements ATRIAL FIBRILLATION BASELINE ARTIFACT NONSPECIFIC ST & T-WAVE ABNORMALITY ABNORMAL ECG COMPARED TO ECG 10/23/2022 16:46:04 NO SIGNIFICANT CHANGES Electronically Signed On 12-08-2022 16:50:36 CDT by Isaiah Pat M.D.
[2022-12-07 15:28] VITALS: PULSE 83
[2022-12-07 15:31] LABS: Basophils Percent Auto 0.2 % (0.2-1.2); Eosinophils Absolute Auto 0.1 K/mm3 (0-0.3); Hematocrit 35.3 % (42.0-52.0); Hemoglobin 11.5 g/dL (14.0-18.0); Immature Granulocyte Absolute 0.03 K/mm3 (0.00-0.031); Immature Granulocyte Percent A 0.6 % (0-0.5); Lymphocytes Absolute Auto 1.79 K/mm3 (0.9-3.2); Lymphocytes Percent Auto 33.3 % (18.3-44.2); Mean Corpuscular HGB Conc 32.6 g/dl (32-36); Mean Corpuscular Volume 104.4 fl (80-100); Mean Platelet Volume 9.5 fl (7.4-10.4); Monocytes Absolute Auto 0.6 K/mm3 (0.1-0.6); Monocytes Percent Auto 10.2 % (2.6-8.5); Neutrophils Absolute Auto 2.9 K/mm3 (1.3-6.7); Neutrophils Percent Auto 53.7 % (45.5-73.1); Platelet Count Result 128 k/mm3 (150-375); Red Blood Count 3.38 M/mm3 (4.6-6.20); Red Cell Distribution Width 15.5 % (11.5-14.5); White Blood Count 5.4 K/mm3 (4.5-10.0)
[2022-12-07 15:32] VITALS: BP 105/50; PULSE 84; RESP 20; O2SAT 97
[2022-12-07 15:49] LABS: Alanine Aminotransferase 25 U/L (6-50); Albumin Level 4.2 g/dL (3.5-5.1); Alkaline Phosphatase 97 U/L (38-126); Anion Gap 7 mmol/L (8-16); Aspartate Amino Transferase 28 U/L (17-59); Bilirubin,Total 1.2 mg/dL (0.2-1.3); Blood Urea Nitrogen 27 mg/dL (9-20); Calcium 8.6 mg/dL (8.4-10.2); Carbon Dioxide 29 mmol/L (22-30); Chloride 105 mmol/L (98-107); Estimated CRCL calculation 52 ml/min; Estimated Glomerular Filt Rate 40; Glucose 160 mg/dL (65-110); Potassium 3.9 mmol/L (3.4-5.0); Sodium 141 mmol/L (137-145)
--- NOTE | 2022-12-07 16:15 | ED.DIZZY ---
HPI - Dizziness General Chief Complaint: Dizziness Stated Complaint: dizziness/neck pain Time Seen by Provider: 12/07/22 16:15 Source: patient and family History of Present Illness HPI Narrative: Patient is 72 years old white male came to the emergency room with his because of being off balance and left facial flush. Patient got up to go to the bathroom, felt off balance lasted for 30 to 40 seconds. He then was able to walk to the bathroom, while sitting on the toilet felt flush of the left face lasted for 3 to 4 minutes. The thought he is complaining of pain at the lt jaw. Patient denied any pain in the jaw just flushed skin of the left face Patient had similar symptoms of flushed face intermittently for the last 2 years. Patient had balance disorder 2 weeks ago and was diagnosed of atrial fibrillation and currently on Eliquis. Currently patient is asymptomatic and started arguing with his that he had no pain in the jaw just flushed skin of the face. Related Data Home Medications Medication Instructions Recorded Confirmed aspirin 81 mg tablet,delayed 81 mg PO DAILY 04/15/21 10/24/22 release bumetanide 2 mg tablet 1 mg PO DAILY 04/15/21 10/24/22 fexofenadine 60 mg tablet (Jessica 60 mg PO Q12H 04/15/21 10/24/22 Allergy) metoprolol tartrate 25 mg tablet 25 mg PO BID 04/15/21 10/24/22 solifenacin 10 mg tablet (Vesicare) 10 mg PO DAILY 04/15/21 10/24/22 allopurinol 300 mg tablet 300 mg PO DAILY 10/24/22 10/24/22 atorvastatin 40 mg tablet 40 mg PO HS 10/24/22 10/24/22 empagliflozin 10 mg tablet 10 mg PO DAILY 10/24/22 10/24/22 (Jardiance) tamsulosin 0.4 mg capsule 0.4 mg PO DAILY 10/24/22 10/24/22 Allergies Allergy/AdvReac Type Severity Reaction Status Date / Time fentanyl Allergy Severe stop Verified 12/07/22 15:32 breathing adhesive tape Allergy Mild Rash Verified 12/07/22 15:32 Review of Systems Review of Systems: All systems reviewed & are unremarkable except as noted in HPI and below PMFSH Past Medical History Medical History CAD (coronary artery disease) CHF (congestive heart failure) Chronic kidney disease, stage 3 unspecified Diabetes HLD (hyperlipidemia) 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 Hypothyroidism [place] (myocardial infarction) OMAR (obstructive sleep apnea) Surgical History Surgical History H/O elbow surgery History of bilateral cataract extraction History of carpal tunnel release History of coronary artery stent placement History of knee replacement bilateral History of shoulder replacement Status cardiac pacemaker Family History Family History Father Heart disease Mother Throat cancer Social History Social History Smoking packs per day: 2 Smoking cigarettes per day: 40.0 Years smoked: 15 Smoking pack-years: 30.00 Smoking status: Former smoker Tobacco type: cigarettes Second hand tobacco smoke exposure: No Smoking end date: 08/31/76 Alcohol intake: never Substance use: never Substance use type: does not use Lack of Transportation: No Lack of Food: Never True Current Housing: I Have Housing Concerned About Future Housing: No Difficulty Paying Gas/Electric Bills: No Difficulty Paying for Meds: No Currently Unemployed: No Education: High School Diploma/GED Difficulty w/ Childcare or Family Care: No Living arrangements: with family Occupation/Education: retired Gender identity (if verbalized by the patient): Male Sexual Orientation (if Verbalized by the Patient): Straight or Heterosexual Spiritual care concerns: No Exam Narrative: General appearance: Well-developed, well-nourished Skin: Normal color, nasolabial folds are erythematous with a fine, greas
[2022-12-07 17:04] LABS: INR 1.1
[2022-12-07 17:05] LABS: Partial Thromboplastin Time 34.4 SECONDS (22.3-36.8)
[2022-12-07 17:46] VITALS: BP 128/69; PULSE 86; RESP 18; O2SAT 98
[2022-12-07 17:50] LABS: Troponin I < 0.012 ng/mL (0.000-0.034)
[2022-12-07 18:28] VITALS: BP 128/73; PULSE 82; RESP 20; O2SAT 97
== END 2022-12-07 18:30 | disposition home or self-care (01) ==
PROVIDERS: Emergency Provider Emergency Medicine; PCP Family Medicine
DX: L21.9 Seborrheic dermatitis, unspecified (principal); R26.9 Unspecified abnormalities of gait and mobility; I48.91 Unspecified atrial fibrillation; I13.0 Hypertensive heart and chronic kidney disease with heart failure and stage 1 through stage 4 chronic kidney disease, or unspecified chronic kidney disease; I50.9 Heart failure, unspecified; E11.22 Type 2 diabetes mellitus with diabetic chronic kidney disease; N18.30 Chronic kidney disease, stage 3 unspecified; I25.10 Atherosclerotic heart disease of native coronary artery without angina pectoris; E78.5 Hyperlipidemia, unspecified; E03.9 Hypothyroidism, unspecified; I25.2 Old myocardial infarction; G47.33 Obstructive sleep apnea (adult) (pediatric); Z95.5 Presence of coronary angioplasty implant and graft; Z95.0 Presence of cardiac pacemaker; Z79.01 Long term (current) use of anticoagulants; Z79.82 Long term (current) use of aspirin; Z79.84 Long term (current) use of oral hypoglycemic drugs; Z87.891 Personal history of nicotine dependence
CPT/HCPCS: 36415; 70450; 71045; 80053; 84484; 85025; 85610; 85730; 93005; 99284

== ENCOUNTER 2023-09-01 12:14 | Observation (INO) | payer OTHER, SELFPAY ==
[2023-09-01] VITALS (15 sets, daily range): BP systolic 120–154; BP diastolic 66–99; PULSE 67–103; RESP 16–22; TEMP 36.1–36.9; O2SAT 93–99; BMI 46.3
--- NOTE | ~2023-09-01 | XR_ITS ---
EXAMINATION: XR chest 1V Exam Date/Time: 09/01/2023 16:10 [facility] HISTORY: weakness Comparison: 12/07/2022. RESULT: Lines, tubes, and devices: Left shoulder arthroplasty, which remains dislocated, with surrounding dy strophic calcification. Left chest pacer with intact leads. Lungs and pleura: Senescent change. Streaky bibasilar atelectasis/scar. Otherwise clear. Cardiomediastinal silhouette: Stable. Other: No acute osseous or upper abdominal finding. IMPRESSION: No acute cardiopulmonary process. Chronically dislocated left shoulder arthroplasty. Reviewed, dictated and finalized at location [facility]. [facility]
--- NOTE | ~2023-09-01 | CT_ITS ---
EXAMINATION: CT brain wo con DATE: 09/01/2023 16:10 INDICATION: Dizziness, nonresponsive staring episode for a minute. TECHNIQUE: Computed tomography (CT) of the head was performed without intravenous contrast. The mA wa s adjusted according to patient size. Iterative reconstruction technique was employed. Exam dose: 68 1.00 mGy-cm total exam DLP. COMPARISON: December 07, 2022 CT brain FINDINGS: There are prominent bilateral vertebral artery calcification and carotid siphon internal ca rotid artery calcification is noted bilaterally. There is nonspecific diminished attenuation of the cerebral white matter, likely due to chronic small vessel ischemic changes. No intracranial mass lesion or hemorrhage or cerebrovascular accident, midline shift or mass effect i s detected. No subdural or epidural hematoma. The mastoid air cells and paranasal sinuses are normally developed and aerated. No fracture or bone destruction of the cranial vault. IMPRESSION: Cerebral atherosclerosis and chronic small vessel ischemic changes of the cerebral white matter No acute intracranial finding Reviewed, dictated and finalized at Location [facility]. Reviewed, dictated and finalized at location L. [facility] [employer]
--- NOTE | 2023-09-01 12:36 | PC.NURSE ---
pt brought to stroke stop - evaluated by Dr Willson - states start suspected stroke protocol while waiting for a room availability.
--- NOTE | 2023-09-01 15:28 | ECG_ITS ---
Measurements Intervals [place] Rate: 81 P: [place]: 0 QRS: 8 QRSD: 101 T: -5 QT: 398 QTc: 462 Interpretive Statements ATRIAL FIBRILLATION BORDERLINE R WAVE PROGRESSION, ANTERIOR LEADS BORDERLINE ST-T WAVE ABNORMALITY- DIFFUSE LEADS BASELINE ARTIFACT- I, II, III, AVR, AVL, AVF, V1-V6 ABNORMAL ECG COMPARED TO ECG 12/07/2022 15:19:52 NO SIGNIFICANT CHANGES Electronically Signed On 09-01-2023 16:56:20 SOLUTION MAKE UP OPERATOR by Cristofer Corea D.O.
[2023-09-01 15:48] LABS: Basophils Percent Auto 0.3 % (0.2-1.2); Eosinophils Absolute Auto 0.1 K/mm3 (0-0.3); Eosinophils Percent Auto 0.8 % (0-4.4); Hematocrit 36.1 % (42.0-52.0); Hemoglobin 11.5 g/dL (14.0-18.0); Immature Granulocyte Absolute 0.02 K/mm3 (0.00-0.031); Immature Granulocyte Percent A 0.3 % (0-0.5); Mean Corpuscular HGB Conc 31.9 g/dl (32-36); Mean Corpuscular Hemoglobin 33.8 pg (26-34); Mean Corpuscular Volume 106.2 fl (80-100); Monocytes Absolute Auto 0.6 K/mm3 (0.1-0.6); Monocytes Percent Auto 9.8 % (2.6-8.5); Neutrophils Absolute Auto 4.1 K/mm3 (1.3-6.7); Neutrophils Percent Auto 62.8 % (45.5-73.1); Platelet Count Result 121 k/mm3 (150-375); White Blood Count 6.6 K/mm3 (4.5-10.0)
[2023-09-01 15:57] LABS: Glucose Point of Care 116 mg/dl (65-105)
--- NOTE | 2023-09-01 15:57 | PC.NURSE ---
Pt taken to CT at this time
[2023-09-01 15:58] LABS: INR 1.2; Prothrombin Time 15.4 Seconds (11.1-14.7)
[2023-09-01 15:59] LABS: Alanine Aminotransferase 22 U/L (6-50); Albumin Level 4.1 g/dL (3.5-5.1); Alkaline Phosphatase 88 U/L (38-126); Anion Gap 10 mmol/L (8-16); Aspartate Amino Transferase 25 U/L (17-59); Bilirubin,Total 1.5 mg/dL (0.2-1.3); Blood Urea Nitrogen 31 mg/dL (9-20); Calcium 9.3 mg/dL (8.4-10.2); Carbon Dioxide 26 mmol/L (22-30); Chloride 104 mmol/L (98-107); Estimated CRCL calculation 47 ml/min; Estimated Glomerular Filt Rate 35; Glucose 127 mg/dL (65-110); Partial Thromboplastin Time 34.4 SECONDS (22.3-36.8); Potassium 4.6 mmol/L (3.4-5.0); Sodium 140 mmol/L (137-145)
[2023-09-01 16:08] LABS: Troponin I 0.021 ng/mL (0.000-0.034)
--- NOTE | 2023-09-01 16:12 | ED.NEUROSD ---
HPI - Neuro Symptoms/Deficit General Chief Complaint: Suspected CVA Stated Complaint: dizzy/weak Time Seen by Provider: 09/01/23 16:10 Source: patient, family and EMS Mode of arrival: EMS Limitations: no limitations History of Present Illness HPI Narrative: 73 YEARS OLD WHITE MALE CAME FROM HOME BY AMBULANCE WITH HIS WHO IS TELLING ME THAT PATIENT HAS DIZZINESS, SHORTNESS OF BREATH WHEN HE STOOD UP TO WALK, WENT SAT INSIDE HER CAR AND WAS UNRESPONSIVE FOR LESS THAN 1 MINUTE. PATIENT DOES NOT REMEMBER THAT. PATIENT MAIN COMPLAINT IS INTERMITTENT FLUSH LIKE FEELING AT THE LEFT SIDE OF HIS FACE. USUALLY LAST UP TO 2 MINUTES AND HAS BEEN GOING FOR 1-2 WEEKS.. HE DENIES ANY FOCAL NEURO DEFICIT, CHEST PAIN OR SHORTNESS OF BREATH. Related Data Home Medications Medication Instructions Recorded Confirmed bumetanide 2 mg tablet 1 mg PO DAILY 04/15/21 07/29/23 fexofenadine 60 mg tablet (Jessica 60 mg PO Q12H 04/15/21 07/29/23 Allergy) metoprolol tartrate 25 mg tablet 25 mg PO BID 04/15/21 07/29/23 empagliflozin 10 mg tablet 10 mg PO DAILY 10/24/22 07/29/23 (Jardiance) Allergies Allergy/AdvReac Type Severity Reaction Status Date / Time fentanyl Allergy Severe stop Verified 07/29/23 11:04 breathing adhesive tape Allergy Mild Rash Verified 07/29/23 11:04 Review of Systems Review of Systems: All systems reviewed & are unremarkable except as noted in HPI and below PMFSH Past Medical History Medical History Aortic stenosis, severe CAD (coronary artery disease) CHF (congestive heart failure) Chronic kidney disease, stage 3 unspecified Diabetes Diabetes mellitus with hyperglycemia DM renal manif type II HLD (hyperlipidemia) 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 Hypothyroidism [place] (myocardial infarction) OMAR (obstructive sleep apnea) Surgical History Surgical History H/O elbow surgery History of bilateral cataract extraction History of carpal tunnel release History of coronary artery stent placement History of knee replacement bilateral History of shoulder replacement Status cardiac pacemaker Family History Family History Father Heart disease Mother Throat cancer Social History Social History Smoking packs per day: 2 Smoking cigarettes per day: 40.0 Years smoked: 15 Smoking pack-years: 30.00 Smoking status: Former smoker Tobacco type: cigarettes Second hand tobacco smoke exposure: No Smoking end date: 08/31/76 Alcohol intake: never Substance use: never Substance use type: does not use Lack of Transportation: No Lack of Food: Never True Current Housing: I Have Housing Concerned About Future Housing: No Difficulty Paying Gas/Electric Bills: No Difficulty Paying for Meds: No Currently Unemployed: No Education: High School Diploma/GED Difficulty w/ Childcare or Family Care: No Living arrangements: with family Occupation/Education: retired Gender identity (if verbalized by the patient): Male Sexual Orientation (if Verbalized by the Patient): Straight or Heterosexual Spiritual care concerns: No Exam Narrative: GENERAL APPEARANCE: WELL-DEVELOPED, WELL-NOURISHED, OBESE, SKIN: NORMAL COLOR HEAD: NORMOCEPHALIC, NONTRAUMATIC EYES: CLEAR CONJUNCTIVA ENT: OROPHARYNX NORMAL, EARS NORMAL, NOSE NORMAL NECK: SUPPLE, NONTENDER CHEST AND RESPIRATORY: AIRWAY PATENT, NO RESPIRATORY DISTRESS, NO ACCESSORY MUSCLE USE HEART: REGULAR RATE/RHYTHM ABDOMEN: SOFT, NONTENDER, NO ORGANOMEGALY, QUIET BOWEL SOUNDS VASCULAR: NORMAL PERIPHERAL PULSES, NORMAL CAPILLARY REFILL. MUSCULOSKELETAL: NORMAL RANGE OF MOTION, NONTENDER BACK NEUROLOGIC: ALERT AND ORIENTED ?3, LEFT FACIAL DROOPING
--- NOTE | 2023-09-01 16:49 | PC.NURSE ---
EDP Dr. Willson gave verbal order for patient to eat. Pt and family updated.
--- NOTE | 2023-09-01 17:16 | PC.NURSE ---
Meal tray delivered to patient
[2023-09-01 17:17] LABS: Influenza A QL RT-PCR Negative (Negative); Influenza B QL RT-PCR Negative (Negative); RSV RNA, RT-PCR Negative (Negative); SARS-CoV-2 RNA PCR Negative (Negative)
[2023-09-01] MEDS: SODIUM CHLORIDE 0.9% IV 1,000 ML 999 ML IV CONT (18:06)
--- NOTE | 2023-09-01 20:44 | PM.IMHP ---
H&P: HPI History of Present Illness Date/Time: 09/01/23 20:44 Chief Complaint: Patient notes the ER for evaluation via EMS for evaluation of his dizziness Narrative: He is a pleasant 73 years old morbidly obese male who is complaining of dizziness off and on for the last week. Finally his convinced him to come to the ER for evaluation. He sat down in the car and did not respond to her for about a minute. got concerned and coalled EMS who brought patient to the ER for evaluation. He has been unresponsive for less than a minute while in the car. Workup was done in the ER, Neurology was consulted and he is being admitted for medical management, tele monitoring, brain MRI, close follow-up and workup. Review of Systems Review of Systems: 14 systems were reviewed with pertinent positives and negatives per HPI. Except as documented in the HPI/progress notes, all other systems were reviewed and are negative. 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 Hypothyroidism [place] (myocardial infarction) OMAR (obstructive sleep apnea) Surgical History Surgical History H/O elbow surgery History of bilateral cataract extraction History of carpal tunnel release History of coronary artery stent placement History of knee replacement bilateral History of shoulder replacement Status cardiac pacemaker Family History Family History Father Heart disease Mother Throat cancer Social History Social History Smoking packs per day: 2 Smoking cigarettes per day: 40.0 Years smoked: 15 Smoking pack-years: 30.00 Smoking status: Never smoker Tobacco type: cigarettes Second hand tobacco smoke exposure: No Smoking end date: 08/31/76 Alcohol intake: never Substance use: never Substance use type: does not use Do You Feel Safe in your Home?: Yes Lack of Transportation: No Lack of Food: Never True Current Housing: I Have Housing Concerned About Future Housing: No Difficulty Paying Gas/Electric Bills: No Difficulty Paying for Meds: No Currently Unemployed: No Education: High School Diploma/GED Difficulty w/ Childcare or Family Care: No Living arrangements: with family Occupation/Education: retired Gender identity (if verbalized by the patient): Male Sexual Orientation (if Verbalized by the Patient): Straight or Heterosexual Spiritual care concerns: No Meds Home Medications and Allergies Home Medications Medication Instructions Recorded Confirmed Type bumetanide 2 mg tablet 1 mg PO DAILY 04/15/21 09/01/23 History fexofenadine 60 mg tablet (Jessica 60 mg PO Q12H 04/15/21 09/01/23 History Allergy) metoprolol tartrate 25 mg tablet 25 mg PO BID 04/15/21 09/01/23 History empagliflozin 10 mg tablet 10 mg PO DAILY 10/24/22 09/01/23 History (Jardiance) apixaban 2.5 mg tablet (Eliquis) 2.5 mg PO Q12HR #60 tabs 10/25/22 09/01/23 Rx cyanocobalamin (vitamin B-12) 1,000 mcg PO DAILY #100 tabs 10/25/22 09/01/23 Rx 1,000 mcg tablet lisinopril 10 mg tablet 10 mg PO DAILY #30 tabs 10/25/22 09/01/23 Rx thyroid (pork) 30 mg tablet 30 mg PO DAILY #90 tabs 04/03/23 09/01/23 Rx ([place] Thyroid) allopurinol 300 mg tablet 300 mg PO DAILY #90 tabs 06/16/23 09/01/23 Rx atorvastatin 40 mg tablet 40 mg PO DAILY #90 tabs 06/16/23 09/01/23 Rx metformin 500 mg tablet,extended 2,000 mg PO DAILY #360 tabs 06/16/23 09/01/23 Rx release 24 hr solifenacin 10 mg tablet 10 mg PO DAILY 09/01/23 09/01/23 History tamsu
--- NOTE | 2023-09-01 21:45 | ADMGEN ---
This patient, Issa Lopez II, was admitted to Medical Room 343-01. Patient/family oriented to hospital policies and general routines including ID bracelet, bed and alarms, visiting hours, pain management, procedures, bathroom and other care routines, personal items, smoking policy, room service/diet, and visiting hours. Information on how to activate the Rapid Response Team has been discussed. Patient/Family are encouraged to report perceived risks to care and to ask questions if they do not understand what they are told or what they should do.
[2023-09-02] VITALS: PULSE 65
[2023-09-02] MEDS: SODIUM CHLORIDE 0.9% IV 1,000 ML 75 ML IV CONT (02:46)
[2023-09-02] MEDS: MAG HYDROX/AL HYDROX/SIMETH 30 ML UDC PO (02:47)
[2023-09-02] MEDS: ACETAMINOPHEN 325 MG TABLET 650 MG PO (02:52)
[2023-09-02 04:00] VITALS: PULSE 62
[2023-09-02 04:27] VITALS: BP 132/64; PULSE 61; RESP 18; TEMP 36.3; O2SAT 97
[2023-09-02 05:51] LABS: Basophils Percent Auto 0.2 % (0.2-1.2); Eosinophils Absolute Auto 0.1 K/mm3 (0-0.3); Eosinophils Percent Auto 1.8 % (0-4.4); Hemoglobin 10.3 g/dL (14.0-18.0); Immature Granulocyte Absolute 0.01 K/mm3 (0.00-0.031); Immature Granulocyte Percent A 0.2 % (0-0.5); Lymphocytes Absolute Auto 1.62 K/mm3 (0.9-3.2); Lymphocytes Percent Auto 33.3 % (18.3-44.2); Mean Corpuscular HGB Conc 32.2 g/dl (32-36); Mean Corpuscular Hemoglobin 33.9 pg (26-34); Mean Corpuscular Volume 105.3 fl (80-100); Mean Platelet Volume 10.6 fl (7.4-10.4); Monocytes Absolute Auto 0.5 K/mm3 (0.1-0.6); Monocytes Percent Auto 11.1 % (2.6-8.5); Neutrophils Absolute Auto 2.6 K/mm3 (1.3-6.7); Neutrophils Percent Auto 53.4 % (45.5-73.1); Platelet Count Result 106 k/mm3 (150-375); Red Blood Count 3.04 M/mm3 (4.6-6.20); Red Cell Distribution Width 15.2 % (11.5-14.5); White Blood Count 4.9 K/mm3 (4.5-10.0)
[2023-09-02 06:05] LABS: Anion Gap 8 mmol/L (8-16); Blood Urea Nitrogen 26 mg/dL (9-20); Calcium 8.4 mg/dL (8.4-10.2); Carbon Dioxide 24 mmol/L (22-30); Chloride 107 mmol/L (98-107); Estimated CRCL calculation 61 ml/min; Estimated Glomerular Filt Rate 46; Glucose 122 mg/dL (65-110); Magnesium 2.1 mg/dL (1.6-2.3); Potassium 3.7 mmol/L (3.4-5.0); Sodium 139 mmol/L (137-145)
[2023-09-02 06:21] LABS: Troponin I 0.046 ng/mL (0.000-0.034)
[2023-09-02 07:09] LABS: Folic Acid 12.7 ng/mL (2.76->20)
[2023-09-02 08:00] VITALS: PULSE 78
[2023-09-02] MEDS: THYROID 30 MG TABLET PO (08:38)
[2023-09-02] MEDS: SOLIFENACIN 5 MG TABLET 10 MG PO (08:38)
[2023-09-02 08:39] VITALS: PULSE 77
[2023-09-02] MEDS: METOPROLOL TARTRATE 25 MG TABLET PO (08:39)
[2023-09-02] MEDS: BUMETANIDE 1 MG TABLET PO (08:40)
[2023-09-02] MEDS: CYANOCOBALAMIN 1,000 MCG TABLET 1000 MCG PO (08:40)
[2023-09-02] MEDS: APIXABAN 2.5 MG TABLET PO (08:40)
[2023-09-02] MEDS: allopurinoL 300 MG TABLET PO (08:40)
[2023-09-02] MEDS: lisinopriL 10 MG TABLET PO (08:40)
[2023-09-02] MEDS: EMPAGLIFLOZIN 10 MG TABLET PO (08:43)
[2023-09-02 08:51] LABS: Glucose Point of Care 141 mg/dl (65-105)
--- NOTE | 2023-09-02 10:21 | WPDNEURCNPN ---
Consult date: 09/02/23 HPI: Issa Lopez II is a 73 year old male Admitted to the hospital through the emergency room where he came by ambulance with complaints of dizziness, difficulties in breathing, and with the information that he sat inside the car unresponsive for [id number] though he was unable to recall what has happened he was only complaining of intermittent pressure-like sensation on the left side of face lasting for about 2minutes which has been recurring over the last 1 to 2 weeks he gave no history of any other neurological symptomatology, he has been taking metoprolol 25mg b.i.d. bumetanide 2mg tablet only hive daily and Jardiance 10mg daily, he does have ongoing history of coronary artery disease, with congestive heart failure, stage III chronic renal disease, diabetes mellitus, with hyperlipidemia hypothyroidism and obstructive sleep apnea has also undergone bilateral knee replacements in addition to bilateral cataract extraction with cardiac pacemaker, former smoker with smoking pack years 30 has not smoked since August of 2076 and never alcohol intake, initial exam in the emergency room documented left facial drooping with normal vital signs normal CBC normal with low platelet count of 121 BMP BUN 31 creatinine 1.90 and negative for influenza a, influenza B, RSV, and COVID, initial CT scan of the head with only chronic small vessel ischemic changes no bleed and chest x-ray negative except dislocated left shoulder arthroplasty. 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 Hypothyroidism [place] (myocardial infarction) OMAR (obstructive sleep apnea) Surgical History Surgical History H/O elbow surgery History of bilateral cataract extraction History of carpal tunnel release History of coronary artery stent placement History of knee replacement bilateral History of shoulder replacement Status cardiac pacemaker Family History Family History Father Heart disease Mother Throat cancer Social History Social History Smoking packs per day: 2 Smoking cigarettes per day: 40.0 Years smoked: 15 Smoking pack-years: 30.00 Smoking status: Never smoker Tobacco type: cigarettes Second hand tobacco smoke exposure: No Smoking end date: 08/31/76 Alcohol intake: never Substance use: never Substance use type: does not use Do You Feel Safe in your Home?: Yes Lack of Transportation: No Lack of Food: Never True Current Housing: I Have Housing Concerned About Future Housing: No Difficulty Paying Gas/Electric Bills: No Difficulty Paying for Meds: No Currently Unemployed: No Education: High School Diploma/GED Difficulty w/ Childcare or Family Care: No Living arrangements: with family Occupation/Education: retired Gender identity (if verbalized by the patient): Male Sexual Orientation (if Verbalized by the Patient): Straight or Heterosexual Spiritual care concerns: No Meds Home Medications and Allergies Home Medications Medication Instructions Recorded Confirmed Type bumetanide 2 mg tablet 1 mg PO DAILY 04/15/21 09/01/23 History fexofenadine 60 mg tablet (Jessica 60 mg PO Q12H 04/15/21 09/01/23 History Allergy) metoprolol tartrate 25 mg tablet 25 mg PO BID 04/15/21 09/01/23 History empagliflozin 10 mg tablet 10 mg PO DAILY 10/24/22 09/01/23 History (Jardiance) apixaban 2.5 mg tablet (Eliquis) 2.5 mg PO Q12HR #60 tabs 10/25/22 09/01/23 Rx cyanocobalamin (vitamin B-12) 1,000 mcg PO DAILY #
[2023-09-02 12:00] VITALS: BP 119/87; PULSE 60; PULSE 75; RESP 15; TEMP 36.6; O2SAT 97
[2023-09-02 12:10] LABS: Glucose Point of Care 163 mg/dl (65-105)
--- NOTE | 2023-09-02 12:22 | WPDNEURCNPN ---
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 Diabetic autonomic neuropathy with recurrent complaints of dizziness particularly with change in the position or standing with sitting position. All the pros and cons explained in front of his . CT scan is negative and because of the cardiac pacemaker cannot have the MRI. thoroughly discussed with him that his recurrent symptomatology is because of the autonomic dysfunction on the basis of diabetes mellitus we do not need to worry about the MRI of the brain and he was instructed accordingly how to manage his change in the position at home he felt satisfied and can be discharged on the present therapeutic regimen Consult date: 09/02/23 HPI: Issa Lopez II is a 73 year old male Admitted to the hospital through the emergency room where he came by ambulance with complaints of dizziness, difficulties in breathing, and with information that he sat inside the car unresponsive for less than a minute though he was unable to recall what has happened. He was only complaining of intermittent pressure-like sensation left side of his face lasting for about 2minutes which has been recurring over the last 1 to 2 weeks. He gave no history of any other neurological symptomatology. He has been taking metoprolol 25mg b.i.d., bumetanide 2mg daily, and Jardiance 10mg daily, he does have ongoing history of coronary artery disease, with congestive heart failure, is stage III chronic renal disease, diabetes mellitus with hyperlipidemia, hypothyroidism, and obstructive sleep apnea he has also undergone bilateral knee replacement in addition to bilateral cataract extraction with cardiac pacemaker in, he is a former smoker with smoking pack years 30 has not smoked since August of 1999 77 and has never taken any alcohol initial exam in the emergency room documented left facial drooping with normal vital signs normal CBC with low platelet count BMP of 121 BUN of 31 creatinine 1.90 and negative for influenza a influenza B RSV and COVID initial CT scan of the head with only chronic small vessel ischemic changes but no bleed and chest x-ray was negative except dislocated left shoulder arthroplasty PMFSH Past Medical History Medical History Aortic stenosis, severe CAD (coronary artery disease) CHF (congestive heart failure) Chronic kidney disease, stage 3 unspecified Diabetes Diabetes mellitus with hyperglycemia DM renal manif type II HLD (hyperlipidemia) 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
--- NOTE | 2023-09-02 12:25 | PC.NURSE ---
Per Hospitalist, ok to leave out IV at this time.
--- NOTE | 2023-09-02 14:11 | PM.DS ---
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: Code(s): I13.0 - Hypertensive heart and chronic kidney disease with heart failure and stage 1 through stage 4 chronic kidney disease, or unspecified chronic kidney disease Status: Acute (5) CHF (congestive heart failure): Qualifiers: Heart failure type: diastolic Heart failure chronicity: chronic Qualified Code(s): I50.32 - Chronic diastolic (congestive) heart failure Code(s): I50.9 - Heart failure, unspecified Status: Chronic (6) OMAR (obstructive sleep apnea): Code(s): G47.33 - Obstructive sleep apnea (adult) (pediatric) Status: Acute (7) Hypothyroidism: Qualifiers: Hypothyroidism type: acquired Qualified Code(s): E03.9 - Hypothyroidism, unspecified Code(s): E03.9 - Hypothyroidism, unspecified Status: Acute (8) HLD (hyperlipidemia): Code(s): E78.5 - Hyperlipidemia, unspecified Status: Acute (9) Status cardiac pacemaker: Code(s): Z95.0 - Presence of cardiac pacemaker Status: Acute (10) Morbid obesity with BMI of 45.0-49.9, adult: Code(s): E66.01 - Morbid (severe) obesity due to excess calories; Z68.42 - Body mass index [BMI] 45.0-49.9, adult Status: Acute (11) Hypertension: Qualifiers: Hypertension type: primary hypertension Qualified Code(s): I10 - Essential (primary) hypertension Code(s): I10 - Essential (primary) hypertension Status: Acute (12) Atrial fibrillation: Qualifiers: Atrial fibrillation type: paroxysmal Qualified Code(s): I48.0 - Paroxysmal atrial fibrillation Code(s): I48.91 - Unspecified atrial fibrillation Status: Acute (13) B12 deficiency: Code(s): E53.8 - Deficiency of other specified B group vitamins Status: Acute Plan ASA given after CT Scan Head ruled out intracranial hemorrhage 2D echo reviewed from outside facility which showed preserved left ventricular ejection fraction at 59% Check TSH and vitamin B12 levels Brain/brainstem MRI unable to be completed due to pacemaker PT recommended outpatient PT for continued strengthening ST - patient refused Patient had OSCAR on CKD , repeat creatinine level 1.5, essentially baseline for patient Received 1.5 L of IV hydration with normal saline in the ER Strict input and output monitoring Patient started on Accu-Cheks with Insulin coverage as per protocol Neurology consult - believes it is autonomic neuropathy related to diabetes. No further evaluation needed. DS: Summary Hospital Course Hospital Course: Patient is 73 YO morbidly obese male with multiple co-morbidities admitted for dizziness off and on for the last week. Finally his convinced him to come to the ER for evaluation. He sat down in the car and did not respond to her for about a minute. He has been unresponsive for less than a minute while in the car. Workup was done in the ER, Neurology was consulted and in light of his symptoms and unable to obtain MRI due to pacemaker, he is clear for d/c to follow up outpatient. Neuro believe it is a autonomic neuropathy related to his diabetes. Instructions given for home. Outpatient PT ordered per their recommendations. Patient has follow up with his [employer] solution architect this month who has recommended stress test in the past. Status at Discharge Functional status at discharge: ema
== END 2023-09-02 14:07 | disposition home or self-care (01) ==
LOC: ANHED 17:37 → ANH3MED 20:48
PROVIDERS: Family Medicine; Admitting Provider Internal Medicine; Emergency Provider Emergency Medicine; PCP Family Medicine; Visit Provider Internal Medicine
DX: I13.0 Hypertensive heart and chronic kidney disease with heart failure and stage 1 through stage 4 chronic kidney disease, or unspecified chronic kidney disease (principal); E11.22 Type 2 diabetes mellitus with diabetic chronic kidney disease; N18.30 Chronic kidney disease, stage 3 unspecified; E11.21 Type 2 diabetes mellitus with diabetic nephropathy; I50.32 Chronic diastolic (congestive) heart failure; I25.10 Atherosclerotic heart disease of native coronary artery without angina pectoris; Z95.5 Presence of coronary angioplasty implant and graft; G47.33 Obstructive sleep apnea (adult) (pediatric); E03.9 Hypothyroidism, unspecified; E78.5 Hyperlipidemia, unspecified; E66.01 Morbid (severe) obesity due to excess calories; Z68.42 Body mass index [BMI] 45.0-49.9, adult; I48.0 Paroxysmal atrial fibrillation; E53.8 Deficiency of other specified B group vitamins; R94.31 Abnormal electrocardiogram [ECG] [EKG]; Z95.0 Presence of cardiac pacemaker; E11.65 Type 2 diabetes mellitus with hyperglycemia; E11.43 Type 2 diabetes mellitus with diabetic autonomic (poly)neuropathy; Z20.822 Contact with and (suspected) exposure to COVID-19; I35.0 Nonrheumatic aortic (valve) stenosis; I25.2 Old myocardial infarction; Z87.891 Personal history of nicotine dependence; Z79.01 Long term (current) use of anticoagulants; Z79.84 Long term (current) use of oral hypoglycemic drugs; Z79.899 Other long term (current) drug therapy
CPT/HCPCS: 36415; 70450; 71045; 80048; 80053; 82607; 82746; 82948; 83735; 84100; 84443; 84484; 85025; 85610; 85730; 87637; 92523; 93005; 96360; 96361; 97161; 97165; 99285; A9270; G0378; J7030

== ENCOUNTER 2023-09-06 17:11 | Emergency (ER) | payer OTHER, SELFPAY ==
[2023-09-06 17:30] VITALS: BP 139/68; PULSE 79; RESP 18; TEMP 36.1; O2SAT 98
--- NOTE | 2023-09-06 17:34 | ED.GENADULT ---
HPI - General Adult General Chief complaint: Wound/Laceration Stated complaint: open sores lt leg Time Seen by Provider: 09/06/23 17:34 Source: patient Mode of arrival: ambulatory Limitations: no limitations History of Present Illness HPI narrative: 73-year-old male patient presents to the [facility] with complaints of left lower extremity wound. Patient does have history of heart disease, diabetes and kidney failure. Patient states he typically does get skin tears and ulcers to the low lower legs and does currently have some skin tears to the left lower leg that they went come and get checked out today. says she has been putting Neosporin on it and keeping it covered with a nonadhesive dressing and wrapping it with Coban. Denies fevers, body aches or chills. Patient denies any increase in pain to left lower extremity. Related Data Home Medications Medication Instructions Recorded Confirmed bumetanide 2 mg tablet 1 mg PO DAILY 04/15/21 09/06/23 fexofenadine 60 mg tablet (Jessica 60 mg PO Q12H 04/15/21 09/06/23 Allergy) metoprolol tartrate 25 mg tablet 25 mg PO BID 04/15/21 09/06/23 empagliflozin 10 mg tablet 10 mg PO DAILY 10/24/22 09/06/23 (Jardiance) solifenacin 10 mg tablet 10 mg PO DAILY 09/01/23 09/06/23 tamsulosin 0.4 mg capsule 0.4 mg PO HS 09/01/23 09/06/23 Allergies Allergy/AdvReac Type Severity Reaction Status Date / Time fentanyl Allergy Severe stop Verified 09/06/23 17:29 breathing adhesive tape Allergy Mild Rash Verified 09/06/23 17:29 Review of Systems Review of Systems: CONSTITUTIONAL: Denies fever, chills, or sweats. EYES: Denies visual changes, redness, or discharge. ENT: Denies rhinorrhea, congestion, sore throat, or otalgia. CARDIOVASCULAR: Denies chest pain, palpitations, or edema. RESPIRATORY: Denies cough or dyspnea. GASTROINTESTINAL: Denies abdominal pain, nausea, vomiting, or diarrhea. GENITOURINARY: Denies dysuria or hematuria. SKIN: Denies rash or itching. MUSCULOSKELETAL: Denies back pain, joint pain, or myalgia. NEUROLOGIC: Denies headache, numbness, or weakness. PSYCHIATRIC: Denies anxiety or depression. 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 Hypothyroidism Old [place] (myocardial infarction) OMAR (obstructive sleep apnea) Surgical History Surgical History H/O elbow surgery History of bilateral cataract extraction History of carpal tunnel release History of coronary artery stent placement History of knee replacement bilateral History of shoulder replacement Status cardiac pacemaker Family History Family History Father Heart disease Mother Throat cancer Social History Social History Smoking packs per day: 2 Smoking cigarettes per day: 40.0 Years smoked: 15 Smoking pack-years: 30.00 Smoking status: Never smoker Tobacco type: cigarettes Second hand tobacco smoke exposure: No Smoking end date: 08/31/76 Alcohol intake: never Substance use: never Substance use type: does not use Do You Feel Safe in your Home?: Yes Lack of Transportation: No Lack of Food: Never True Current Housing: I Have Housing Concerned About Future Housing: No Difficulty Paying Gas/Electric Bills: No Difficulty Paying for Meds: No Currently Unemployed: No Education: High School Diploma/GED Difficulty w/ Childcare or Family Care: No Living arrangements: with family Occupation/Education: retired Gender identity (if verbalized by the
== END 2023-09-06 18:00 | disposition home or self-care (01) ==
PROVIDERS: Emergency Provider Nurse Practitioner Family; PCP Family Medicine
DX: E11.622 Type 2 diabetes mellitus with other skin ulcer (principal); L97.929 Non-pressure chronic ulcer of unspecified part of left lower leg with unspecified severity; I13.0 Hypertensive heart and chronic kidney disease with heart failure and stage 1 through stage 4 chronic kidney disease, or unspecified chronic kidney disease; N18.30 Chronic kidney disease, stage 3 unspecified; E11.22 Type 2 diabetes mellitus with diabetic chronic kidney disease; I50.9 Heart failure, unspecified; I25.10 Atherosclerotic heart disease of native coronary artery without angina pectoris; E03.9 Hypothyroidism, unspecified; E78.5 Hyperlipidemia, unspecified; F17.210 Nicotine dependence, cigarettes, uncomplicated; Z79.899 Other long term (current) drug therapy
CPT/HCPCS: 99213; G0463

== ENCOUNTER 2024-03-09 09:52 | Emergency (ER) | payer OTHER, SELFPAY ==
[2024-03-09 10:08] LABS: Basophils Percent Auto 0.2 % (0.2-1.2); Eosinophils Absolute Auto 0.1 K/mm3 (0-0.3); Eosinophils Percent Auto 0.9 % (0-4.4); Hematocrit 31.8 % (42.0-52.0); Hemoglobin 9.9 g/dL (14.0-18.0); Immature Granulocyte Percent A 1.7 % (0-0.5); Lymphocytes Absolute Auto 3.55 K/mm3 (0.9-3.2); Lymphocytes Percent Auto 60.6 % (18.3-44.2); Mean Corpuscular HGB Conc 31.1 g/dl (32-36); Mean Corpuscular Hemoglobin 34.7 pg (26-34); Mean Corpuscular Volume 111.6 fl (80-100); Mean Platelet Volume 10.6 fl (7.4-10.4); Monocytes Absolute Auto 0.4 K/mm3 (0.1-0.6); Monocytes Percent Auto 6.1 % (2.6-8.5); Neutrophils Absolute Auto 1.8 K/mm3 (1.3-6.7); Neutrophils Percent Auto 30.5 % (45.5-73.1); Platelet Count Result 108 k/mm3 (150-375); Red Blood Count 2.85 M/mm3 (4.6-6.20); Red Cell Distribution Width 15.9 % (11.5-14.5); White Blood Count 5.9 K/mm3 (4.5-10.0)
[2024-03-09 10:16] LABS: Macrocytosis 1+ (NORMAL); Platelet Estimate Decreased (Adequate); Schistocytes None Seen
[2024-03-09 10:19] LABS: Alanine Aminotransferase 29 U/L (6-50); Albumin Level 3.5 g/dL (3.5-5.1); Alkaline Phosphatase 63 U/L (38-126); Anion Gap 21 mmol/L (4-12); Aspartate Amino Transferase 29 U/L (17-59); Bilirubin,Total 1.6 mg/dL (0.2-1.3); Blood Urea Nitrogen 37 mg/dL (9-20); Calcium 10.4 mg/dL (8.4-10.2); Carbon Dioxide 18 mmol/L (22-30); Chloride 102 mmol/L (98-107); Estimated Glomerular Filt Rate 35; Glucose 245 mg/dL (65-110); Potassium 3.3 mmol/L (3.4-5.0); Sodium 141 mmol/L (137-145)
--- NOTE | 2024-03-09 10:25 | ED.CPR ---
HPI - CPR General Chief Complaint: Cardiac Arrest/CPR Stated Complaint: cardiac arrest History of Present Illness HPI narrative: Patient is a 74-year-old male with history of valvular disease, CKD stage 4 here in a cardiac arrest. History per EMS and . 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 They had planned to do outpatient cardiac catheterization in anticipation of clearance for valve surgery. He was at a lab appointment at a nearby facility, got back into his car and went unresponsive for . On EMS arrival he was pulled out of the car and found to be pulseless in V-tach. CPR was initiated, 3-4 shocks were given in route with shift from V-tach to PE a to V fib. Bicarb, amiodarone, calcium given in route to the hospital. Glucose normal en route. Igel placed by EMS. Related Data Home Medications Medication Instructions Recorded Confirmed bumetanide 2 mg tablet 1.5 mg PO DAILY 04/15/21 02/01/24 fexofenadine 60 mg tablet (Jessica 180 mg PO Q12H PRN Allergy Symptoms 04/15/21 02/01/24 Allergy) metoprolol tartrate 25 mg tablet 50 mg PO BID 04/15/21 02/01/24 atorvastatin 40 mg tablet 40 mg PO HS 01/15/24 02/01/24 docusate sodium 100 mg capsule 100 mg PO BID 01/15/24 02/01/24 (Colace) lidocaine 4 % topical patch 1 patch topical DAILY 01/15/24 02/01/24 nitroglycerin 0.4 mg sublingual 0.4 mg sublingual Q5-15M PRN Chest 01/15/24 02/01/24 tablet Pain nystatin 100,000 unit/gram topical 1 applic topical BID 01/15/24 02/01/24 powder solifenacin 10 mg tablet 10 mg PO DAILY 01/15/24 02/01/24 vitamin D3 25 mcg (1,000 unit)-vit 2 tablet PO DAILY 01/15/24 02/01/24 K2 90 mcg disintegrating tablet Allergies Allergy/AdvReac Type Severity Reaction Status Date / Time fentanyl Allergy Severe stop Verified 02/01/24 11:16 breathing adhesive tape Allergy Mild Rash Verified 02/01/24 11:16 oxybutynin AdvReac Migraine Verified 02/01/24 11:16 tolterodine AdvReac Unknown Verified 02/01/24 11:16 Review of Systems Review of Systems: ROS unobtainable: Yes unobtainable due to medical condition (cardiac arrest) [facility] Past Medical History Medical History Aortic stenosis, severe CAD (coronary artery disease) CHF (congestive heart failure) Chronic kidney disease, stage 3 unspecified Diabetes Diabetes mellitus with hyperglycemia DM renal manif type II HLD (hyperlipidemia) 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 Hypothyroidism [place] (myocardial infarction) OMAR (obstructive sleep apnea) Surgical History Surgical History H/O elbow surgery History of bilateral cataract extraction History of carpal tunnel release History of coronary artery stent placement History of knee replacement bilateral History of shoulder replacement Status cardiac pacemaker Family History Family History Father Heart disease Mother Throat cancer Social History Social History Smoking packs per day: 2 Smoking cigarettes per day: 40.0 Years smoked: 30 Smoking pack-years: 60.00 Smoking status: Former smoker Tobacco type: cigarettes Second hand tobacco smoke exposure: No Smoking end date: 08/31/76 Alcohol intake: never Substance use: never Substance use type: does not use Do You Feel Safe in your Home?: Yes Lack of Transportation: No Lack of Food: Never True Current Housing: I Have Housing Concerned About Future Housing: No Difficulty Paying Gas/Electric Bills: No Difficulty Paying for Meds: No Currently Unemployed: No Education: High School Diploma/GED Difficulty w/ Childcare or Family Care: No Living arrangements: with family Occupation/E
[2024-03-09 11:03] LABS: Glucose Point of Care 195 mg/dl (65-105)
--- NOTE | 2024-03-09 11:11 | PC.NURSE ---
patient was brought in by ems after being called from patients about them losing consciousness at 0925 while they were in their vehicle. ems states they arrived at roughly 0930 where the patient was unresponsive and pulseless. they then state that they began chest compressions, inserted an Ijel airway with BMV, applied bus monitor, started IV access in the RIGHT arm, and obtained a blood glucose of 245. ems states patient was on the way to doctors office to get heart evaluated because they were told they need heart valve replacement. Prior to arrival ems delivered 7 shocks due to patient being in pulseless Vfib, as well as administering multiple doses of Epi and one dose of amiodarone. ems continued CPR and maintained patients airway until ER team could take over. when patient arrived to ER at 0951 compressions were in progress with Armand device, patient appeared with cyanotic face, Dr. Shanique De La Rosa was the provider, and there was no delay in code team continuing code blue. after moving patient to ER stretcher, 1L of 0.9% NS was started and 1 dose of amiodarone was administered. ER staff was unable to obtain a blood pressure on patient. please see code blue sheet for all rhythms, pulse checks, blood sugar recheck, IV administration, and medications. spouse was bedside for the last 5 minutes of code in progress and verbalizes that stopping compressions would be what the patient would like. Dr. De La Rosa verbalizes to team to stop compressions and called time of at 1017.
--- NOTE | 2024-03-10 08:14 | PC.NURSE ---
Patient released by [facility] due to inability to speak with family regarding possible donation. Meg at [facility] contacted at .
== END 2024-03-09 14:05 | disposition expired ==
PROVIDERS: Emergency Provider Student in an Organized Health Care Education/Training Program; PCP Family Medicine
DX: I46.9 Cardiac arrest, cause unspecified (principal); I13.0 Hypertensive heart and chronic kidney disease with heart failure and stage 1 through stage 4 chronic kidney disease, or unspecified chronic kidney disease; E11.22 Type 2 diabetes mellitus with diabetic chronic kidney disease; N18.30 Chronic kidney disease, stage 3 unspecified; I50.9 Heart failure, unspecified; E78.5 Hyperlipidemia, unspecified; E03.9 Hypothyroidism, unspecified; I25.2 Old myocardial infarction; I25.10 Atherosclerotic heart disease of native coronary artery without angina pectoris; Z87.891 Personal history of nicotine dependence
CPT/HCPCS: 36415; 80053; 82948; 85025; 92950; 96374; 96375; 99285; J0171; J0282